=== PATIENT | male | born 1960 | race Caucasian/White ===

== ENCOUNTER 2018-07-11 06:52 | Day surgery (SDC) | payer OTHER ==
[~2018-07-11] VITALS: Ht 165.1 cm; Wt 74.8 kg
[~2018-07-11 06:52] MED LIST: ALPR2TAB1 PO; COZ50 PO
[2018-07-11] MEDS ORDERED: fentaNYL 0.05 MG/ML VIAL ONE (09:09)
[2018-07-11] MEDS ORDERED: LIDOCAINE 2% 100 MG/5 ML UJET TP ONE (09:09)
== END 2018-07-11 10:20 | disposition home or self-care (01) ==
LOC: MDS 06:52 → MTU 06:53 → MDS 10:20
PROVIDERS: ATTEND Internal Medicine Gastroenterology
DX: D12.3 Benign neoplasm of transverse colon (principal); K64.8 Other hemorrhoids; F41.9 Anxiety disorder, unspecified; I10 Essential (primary) hypertension; E78.00 Pure hypercholesterolemia, unspecified; E66.3 Overweight; Z68.27 Body mass index [BMI] 27.0-27.9, adult; Z79.899 Other long term (current) drug therapy; Z98.890 Other specified postprocedural states
CPT/HCPCS: 45385; J3010

== ENCOUNTER 2021-09-07 14:21 | Emergency (ER) | payer OTHER ==
[~2021-09-07] VITALS: Ht 165.1 cm; Wt 79.4 kg
[~2021-09-07 14:21] MED LIST changes: -COZ50 PO; +LOSA50TA57 PO
[2021-09-07 14:31] VITALS: BP 134/54
--- NOTE | 2021-09-07 14:36 | NUR ---
BIB SELF C/O RIGHT KNEE PAIN S/P FALL X TODAY.PMH: HTN.
[2021-09-07] MEDS ORDERED: KETOROLAC 30 MG/ML VIAL IM ONE (15:50)
[2021-09-07] MEDS ORDERED: IBUP-2213 PO (16:05)
[2021-09-07 16:25] VITALS: BP 122/62
--- NOTE | 2021-09-07 16:25 | NUR ---
Patient discharged with v/s stable. Written and verbal after care instructions given and explained. Patient alert, oriented and verbalized understanding of instructions. Ambulatory with [facility]. All questions addressed prior to discharge. ID band removed. Patient advised to follow up with PMD. Rx of IBUPROFEN given. Patient educated on indication of medication including possible reaction and side effects. Opportunity to ask questions provided and answered.
== END 2021-09-07 16:25 | disposition home or self-care (01) ==
LOC: MED 14:21
DX: S83.91XA Sprain of unspecified site of right knee, initial encounter (principal); I10 Essential (primary) hypertension; Z79.899 Other long term (current) drug therapy; Z79.1 Long term (current) use of non-steroidal anti-inflammatories (NSAID); X50.1XXA Overexertion from prolonged static or awkward postures, initial encounter; Y93.89 Activity, other specified; Y92.89 Other specified places as the place of occurrence of the external cause; Y99.8 Other external cause status
CPT/HCPCS: 29505; 73562; 96372; 99283; J1885